=== PATIENT | female | born 1935 | race Hispanic/Latino ===

== ENCOUNTER → 2023-11-26 | Outpatient (CLI) | payer MEDICARE ==
[~2023-11-26] MED LIST: HYDR-3965 PO; METO50TA18 PO; OMEP20TA20 PO; PNV1TAB.4 PO; RIVA20TA PO; ROSU10TA72 PO; TOLT4CAP27 PO; VALS1TAB76 PO
[2023-11-26 12:22] LABS: BASOPHILS # (AUTO) 0.03 K/uL (0.00-0.20); BASOPHILS % (AUTO) 0.4 % (0.0-5.0); EOSINOPHILS # (AUTO) 0.03 K/uL (0.00-0.70); EOSINOPHILS % (AUTO) 0.4 % (0.0-8.0); HEMATOCRIT 38.1 % (36-48); IMMATURE GRANULOCYTE ABSOLUTE 0.02 K/uL (0-1); LYMPHOCYTES # (AUTO) 1.7 K/uL (1.0-4.8); LYMPHOCYTES % (AUTO) 24.3 % (21.0-51.0); MEAN CORPUSCULAR HGB CONC 32.8 g/dL (32.0-36.0); MEAN CORPUSCULAR VOLUME 91.6 fL (79-99); MONOCYTES # (AUTO) 0.6 K/uL (0.1-1.0); MONOCYTES % (AUTO) 9.1 % (3.0-13.0); NEUTROPHILS # (AUTO) 4.6 K/uL (1.8-7.7); NEUTROPHILS % (AUTO) 65.5 % (40.0-77.0); PLATELET COUNT (AUTO) 166 K/uL (130-400); RED BLOOD CELL COUNT(AUTO) 4.16 MIL/uL (4.00-5.50); RED CELL DISTRIBUTION WIDTH 13.4 % (11.0-15.5)
== END | disposition home or self-care (01) ==
LOC: LAB 08:27
PROVIDERS: ATTEND Internal Medicine Cardiovascular Disease
DX: I48.0 Paroxysmal atrial fibrillation (principal); D68.69 Other thrombophilia
CPT/HCPCS: 36415; 85025

== ENCOUNTER → 2024-06-25 | Outpatient (CLI) | payer MEDICARE ==
--- NOTE | 2024-06-26 18:17 | HMCSR ---
APPROVED REPORT EXAM: Two-dimensional and M-mode echocardiogram with Doppler and color Doppler. INDICATION ICD: I48.0 Chronic AF 2D Dimensions RVDd3.7 cmLVEF(%)58.0 (>50%)LA ESV INDEX (BP)38.78 mL/m2 IVSd0.8 (0.7-1.1cm)FS(%)31 % LVDd5.1 (3.8-5.6cm)LA (2D)4.3 (1.6-4.0cm) PWd0.8 (0.7-1.1cm)Ao Root(2D)3.1 (2.0-3.7cm) IVSs0.9 cmLVOT diam2.0 (1.8-2.4cm) LVDs3.5 (2.5-4.0cm) PWs1.6 cm M-Mode Dimensions EPSS0.9 cm LA (MM)5.2 (1.6-4.0cm) Ao Root(MM)2.9 (2.0-3.7cm) Aortic Valve AoV Vmax1.3 m/Michelle Peak GR7.2 mmHgLVOT Vmax1.1 m/s AoV VTI0.3 mAo Mean GR3.8 mmHgLVOT VTI0.26 m GREG (VMAX)2.6 cm2Al P1/2T598 msAVA (VTI) 2.6 cm2 Mitral Valve MV E Vmax51.0 cm/sDECEL [id number] msMV Peak GR4 mmHg MV A Vmax90.8 cm/sP 1/2 T69 msMV Mean GR1 mmHg E/A ratio0.6MVA (PHT)3.2 cm2 TDI E/E' Enwtov47.0E/E' Lateral8.5 Medial E' Peak V3.00 cm/sLateral E' Peak V6.00 cm/s Pulmonary Valve PV Vmax0.8 m/s Tricuspid Valve TR Vmax2.5 m/sRAP (EST) 3 [id number] mmHg TR Peak GR26.6 mmHg Left Ventricle The left ventricle is normal size. There is normal LV segmental wall motion. There is normal left martha tricular wall thickness. The LVEF is > 55%. Stage I diastolic dysfunction. Right Ventricle The right ventricle is normal size. The right ventricular systolic function is normal. Atria The left atrium is mildly dilated. The right atrium is borderline dilated. Aortic Valve The aortic valve is normal in structure. Mild aortic regurgitation is present. There is no aortic royal vular stenosis. Mitral Valve The mitral valve is normal in structure. There is mild mitral valve regurgitation noted. There is no mitral valve stenosis. Tricuspid Valve The tricuspid valve is normal in structure. There is trace of tricuspid valve regurgitation noted. Pulmonic Valve The pulmonary valve is normal in structure. There is no pulmonic valvular regurgitation. Great Vessels The aortic root is normal in size. The IVC is normal in size and collapses >50% with inspiration. Pericardium There is no pericardial effusion. Other Information Quality : Adequate Conclusion The LVEF is > 55%. Stage I diastolic dysfunction. The left atrium is mildly dilated.
== END | disposition home or self-care (01) ==
LOC: SHCH 09:08
PROVIDERS: ATTEND Internal Medicine Cardiovascular Disease
DX: I08.0 Rheumatic disorders of both mitral and aortic valves (principal); I48.0 Paroxysmal atrial fibrillation
CPT/HCPCS: 93306